=== PATIENT | female | born 1970 | race African-American/Black ===

== ENCOUNTER 2018-02-17 21:42 | Inpatient (IN) | payer OTHER ==
[~2018-02-17] VITALS: Ht 172.7 cm; Wt 96.2 kg
[2018-02-17 21:46] VITALS: BP 180/80
[2018-02-17] MEDS ORDERED: LISINOPRIL20 MG PO (21:55)
[2018-02-17] MEDS ORDERED: LEXAPRO 10 MG T10 M1 PO (21:56)
[2018-02-17] MEDS ORDERED: ADIPEX-P37.5 MG PO (21:57)
[2018-02-17 22:03] LABS: HEMATOCRIT 40.1 % (37.0-47.0); HEMOGLOBIN 12.8 gm/dL (12.0-15.0); MCH 27.7 pg (26.0-34.0); MCHC 31.8 g/dL (28.0-37.0); MCV 86.9 fL (80.0-100.0); RBC 4.61 mil/uL (4.20-5.00); RDW 13.3 % (10.5-14.5); WBC 6.7 thou/uL (4.0-11.0)
[2018-02-17 22:07] LABS: CALCIUM 9.2 mg/dL (8.5-10.1); CREATININE 0.8 mg/dL (0.6-1.0); POTASSIUM 3.4 mmol/L (3.5-5.1)
[2018-02-17] MEDS ORDERED: OMEGA-31000 M1 PO (22:22)
[2018-02-17] MEDS ORDERED: UNICOMPLEX M TA1 TA1 PO (22:23)
[2018-02-17 22:42] VITALS: BP 185/93
[2018-02-17 22:57] VITALS: BP 128/77
[2018-02-17 23:00] VITALS: BP 120/74; BP 128/69
[2018-02-17 23:15] VITALS: BP 133/72
[2018-02-17 23:30] VITALS: BP 128/69
[2018-02-18] VITALS (16 sets, daily range): BP systolic 129–169; BP diastolic 66–94
[2018-02-18 05:20] LABS: CALCIUM 8.9 mg/dL (8.5-10.1); CREATININE 0.9 mg/dL (0.6-1.0); POTASSIUM 4.2 mmol/L (3.5-5.1)
[2018-02-18] MEDS ORDERED: AMLODIPINE BESY10 MG PO (08:33)
[2018-02-18] MEDS ORDERED: MEDROL DOSPAK21 TA1 PO (08:33)
== END 2018-02-18 09:20 | disposition home or self-care (01) | DRG 916 ==
LOC: ER 21:42 → EROBS 22:11 → ICU 22:11
PROVIDERS: Nurse Practitioner Family; Physician Assistant
PROC: 30233K1 Transfusion of Nonautologous Frozen Plasma into Peripheral Vein, Percutaneous Approach (ICD-10-PCS; principal; 2018-02-18)
PROC: 30233L1 Transfusion of Nonautologous Fresh Plasma into Peripheral Vein, Percutaneous Approach (ICD-10-PCS; principal; 2018-02-18)
DX: T78.3XXA Angioneurotic edema, initial encounter (principal); T46.4X5A Adverse effect of angiotensin-converting-enzyme inhibitors, initial encounter; I10 Essential (primary) hypertension; F32.9 Major depressive disorder, single episode, unspecified; E66.9 Obesity, unspecified; Z68.32 Body mass index [BMI] 32.0-32.9, adult; Z79.899 Other long term (current) drug therapy; Y92.89 Other specified places as the place of occurrence of the external cause
CPT/HCPCS: 10078